=== PATIENT | female | born 1990 | race Caucasian/White ===

== ENCOUNTER 2019-10-20 10:37 | Emergency (ER) | payer BC ==
--- NOTE | 2019-10-20 12:48 | ED ---
Back Pain - HPI Summary HPI Summary: 29 y/o female presented to [facility] complaining of lower right back pain present since last week. Since then the pain has moved to her hip, where she is experiencing a radiating pain that has worsened and become more frequent. Patient notes it feels like she has a bruise and it hurts to lay flat on her back. She was seen at urgent care and was given Tizanidine that did not help, but she notes she only took one and stopped when it did not work. She notes that ibuprofen helps her pain somewhat. She denies any bowel or bladder incontinence, saddle paresthesias, or weakness in the lower extremities. LNMP was about 1 week ago. - History of Current Complaint Chief Complaint: EDBackInjuryPain Stated Complaint: HIP PAIN Time Seen by Provider: 10/20/19 12:11 Hx Obtained From: Patient Onset/Duration: Lasting Days, Still Present Onset/Duration: Started Days Ago, Still Present Back Pain Location: Is Discrete @ - low right Severity Currently: Moderate Pain Intensity: 4 Pain Scale Used: 0-10 Numeric Aggravating Symptom(s): Other - laying down Alleviating Symptom(s): Position - supine Associated Signs And Symptoms: Positive: Other - radiating back pain. Negative : Weakness - in the lower extremities, Numbness - saddle, Bladder Incontinence, Bowel Incontinence - Allergies/Home Medications Allergies/Adverse Reactions: Allergies Allergy/AdvReac Type Severity Reaction Status Date / Time No Known Allergies Allergy Verified 10/20/19 10:50 PMH/Surg Hx/FS Hx/Imm Hx Sensory History: Denies: Hx Legally Blind, Hx Deafness Opthamlomology History: Denies: Hx Legally Blind EENT History: Denies: Hx Deafness Infectious Disease History: No Infectious Disease History: Denies: Traveled Outside the [place] in Last 30 Days - Family History Known Family History: Negative: Hypertension, Diabetes - Social History Alcohol Use: Rare Substance Use Type: Reports: None Smoking Status (MU): Never Smoked Tobacco Review of Systems Negative: Other - bowel incontinence Negative: incontinence Positive: Other - lower right back pain radiating into hip Negative: Weakness, Paresthesia All Other Systems Reviewed And Are Negative: Yes Physical Exam - Summary Physical Exam Summary: VITAL SIGNS: Reviewed. GENERAL: Patient is a well-developed and nourished female who is lying comfortable in the stretcher. Patient is not in any acute respiratory distress. HEAD AND FACE: No signs of trauma. No ecchymosis, hematomas or skull depressions. No sinus tenderness. EYES: PERRLA, EOMI x 2, No injected conjunctiva, no nystagmus. EARS: Hearing grossly intact. Ear canals and tympanic membranes are within normal limits. MOUTH: Oropharynx within normal limits. NECK: Supple, trachea is midline, no adenopathy, no JVD, no carotid bruit, no c- spine tenderness, neck with full ROM. CHEST: Symmetric, no tenderness at palpation. LUNGS: Clear to auscultation bilaterally. No wheezing or crackles. CVS: Regular rate and rhythm, S1 and S2 present, no murmurs or gallops appreciated. ABDOMEN: Soft, non-tender. No signs of distention. No rebound, no guarding, and no masses palpated. Bowel sounds are normal. BACK: Paraspinal tenderness in the lumbar spine. EXTREMITIES: Decreased ROM of the right hip secondary to pain. Otherwise FROM in all major joints, no edema, no cyanosis or clubbing. NEURO: Alert and oriented x 3. No acute neurological deficits. Speech is normal and follows commands. SKIN: Dry and warm. Triage Information Reviewed: Yes Vital Signs On Initial Exam: Initial Vitals Temp Pulse Resp BP Pulse Ox 98.3 F 89 19 126/95 99 10/20/19 10:47 10/20/19 10:47 10/20/19 10:47 10/20/19 10:47 10/20/19 10:47 Vital Signs Reviewed: Yes Procedures - Sedation Patient Received Moderate/Deep Sedation with Procedure: No Diagnostics - Vital Signs Vital Signs Temp Pulse Resp BP Pulse Ox 10/20/19 10:47 98.3 F 89 19 126/95 99 - Laboratory Lab Statement: Any lab studies that have been ordered have been reviewed, and results considered in the medical decision making process. - Radiology Hip/Pelvis X-Ray Radiology Interpretation Completed By: Radiologist Summary of Radiographic Findings: MILD OSTEOARTHRITIS, GREATER ON THE LEFT THAN ON THE RIGHT. NO ACUTE OSSEOUS INJURY. IF SYMPTOMS PERSIST, RECOMMEND REPEAT IMAGING. ED physician has reviewed this report. Lumbar spine x-ray Radiology Interpretation Completed By: Radiologist Summary of Radiographic Findings: MILD DEGENERATIVE DISC DISEASE. ED physican has reviewed this report. Re-Evaluation - Re-Evaluation First Eval Re-Evaluation Time: 13:30 Comment: We discussed results and plan for discharge. Back Pain Course/Dx - Course Assessment/Plan: 29 y/o female presented to [facility] complaining of lower right back pain present since last week. Since then the pain has moved to her hip, where she is experiencing a radiating pain that has worsened and become more frequent. Patient notes it feels like she has a bruise and it hurts to lay flat on her back. She was seen at urgent care and was given Tizanidine that did not help, but she notes she only took one and stopped when it did not work. She notes that ibuprofen helps her pain somewhat. She denies any bowel or bladder incontinence, saddle paresthesia, or weakness in the lower extremities. LNMP was about 1 week ago. L spine x ray impression: Mild degenerative disc disease. Hip x-ray impression: Mild osteoarthritis, greater on the left than on the right. No acute osseous injury. If Symptoms persist, recommend repeat imaging. In the ED course, the patient was given Toradol, Decadron, and Trovafloxacin, and the symptoms improved. The patient is ambulatory without any significant discomfort. Therefore, the patient will be discharged home with follow-up with a primary care physician. The patient will be given a prescription for a Medrol Dosepak and Ibuprofen. - Diagnoses Provider Diagnoses: Back pain, Hip pain Discharge ED - Sign-Out/Discharge Documenting (check all that apply): Patient Departure - discharge - Discharge Plan Condition: Stable Disposition: HOME Prescriptions: Ibuprofen TAB* [Motrin TAB* 800 MG] 800 mg PO Q8H PRN #30 tab PRN Reason: Pain - Moderate methylPREDNISolone [Medrol Dosepak 4 MG*] 0 mg PO .SEE CEDRIC INSTRUCTION #1 cedric Patient Education Materials: Back Pain (ED), Hip Pain (ED) Referrals: Roman Aguirre MD [Primary Care Provider] - 2 Days Additional Instructions: PLEASE FOLLOW UP WITH YOUR PRIMARY CARE PHYSICIAN IN 1-3 DAYS AND RETURN TO THE EMERGENCY DEPARTMENT FOR ANY NEW OR WORSENING SYMPTOMS. Take all the prescribed medications as directed. - Billing Disposition and Condition Condition: STABLE Disposition: Home - Attestation Statements Document Initiated by Scribe: Yes Documenting Scribe: Carlin Alex Natalie George Provider For Whom Scribe is Documenting (Include Credential): Vicente Westbrook MD Scribe Attestation: I, Carlin Alex Natalie George, scribed for Vicente Westbrook MD on 10/20/19 at 2140. Scribe Documentation Reviewed: Yes Provider Attestation: The documentation as recorded by the scribe, Carlin Alex Natalie George accurately reflects the service I personally performed and the decisions made by me, Vicente Westbrook MD Status of Scribe Document: Viewed
[2019-10-20] MEDS ORDERED: Dexamethasone TAB* 4 MG PO ONE (13:16)
[2019-10-20] MEDS ORDERED: Ketorolac *IM* INJ* 60 MG/2 ML VIAL IM ONE (13:16)
[2019-10-20] MEDS ORDERED: Methocarbamol TAB* 500 MG PO ONE (13:17)
[2019-10-20 13:44] VITALS: BP 139/91
== END 2019-10-20 13:43 | disposition home or self-care (01) ==
LOC: ED 10:37
DX: M54.5 Low back pain (principal); M25.551 Pain in right hip; M51.36 Other intervertebral disc degeneration, lumbar region; M16.11 Unilateral primary osteoarthritis, right hip
CPT/HCPCS: 72100; 96372; 99282; A9270-GY; J1885; J8540